=== PATIENT | female | born 1965 | race Caucasian/White ===

== ENCOUNTER 2016-07-21 15:49 | Emergency (ER) | payer OTHER | END 2016-07-21 18:24 | disposition home or self-care (01) | LOC: ER1 15:49 | DX: S16.1XXA Strain of muscle, fascia and tendon at neck level, initial encounter (principal); Z79.899 Other long term (current) drug therapy; Z90.89 Acquired absence of other organs; X58.XXXA Exposure to other specified factors, initial encounter | CPT/HCPCS: 99283 ==